=== PATIENT | female | born 1945 | race Caucasian/White ===

== ENCOUNTER 2016-04-22 08:20 | Emergency (ER) | payer OTHER, SELFPAY | END 2016-04-22 10:08 | disposition home or self-care (01) | LOC: ER 08:20 | DX: L72.3 Sebaceous cyst (principal); I10 Essential (primary) hypertension; Z90.710 Acquired absence of both cervix and uterus; Z79.899 Other long term (current) drug therapy | CPT/HCPCS: 96372; 99282-25 ==

== ENCOUNTER 2016-06-12 13:07 | Inpatient (IN) | payer OTHER ==
[~2016-06-12] VITALS: Ht 162.6 cm; Wt 79.0 kg
[2016-06-12 13:30] LABS: URINE BILIRUBIN 1+ (NEGATIVE); URINE BLOOD TRACE (NEGATIVE); URINE GLUCOSE (UA) NORMAL (NORMAL); URINE KETONE TRACE (NEGATIVE); URINE LEUKOCYTE ESTERASE 2+ (NEGATIVE); URINE NITRATE NEGATIVE (NEGATIVE); URINE PROTEIN 1+ (NEGATIVE)
[2016-06-12 13:42] LABS: URINE BACTERIA 1+ (NONE SEEN); URINE RBC 0-5 /[HPF] (0-2); URINE SQUAMOUS EPITHELIAL CELL >20 /[HPF] (NONE SEEN); URINE WBC >15 /[HPF] (0-5)
[2016-06-12 14:04] LABS: BASO % 0.1 % (0.1-1.2); EOS # 0.2 10_X3_uL (0.0-0.4); GRAN # 7.5 10_X3_uL (1.6-6.1); GRAN % 89.7 % (34.0-71.1); HEMATOCRIT 42.9 % (34-45); HEMOGLOBIN 14.3 g/dL (11.2-15.7); LYMPH # 0.3 10_X3_uL (1.2-3.7); MEAN CORPUSCULAR HEMOGLOBIN 31.3 pg (27.0-33.0); MEAN CORPUSCULAR HGB CONC 33.3 g/dL (32.0-36.0); MEAN CORPUSCULAR VOLUME 93.9 fL (79-95); MEAN PLATELET VOLUME 8.9 fl (7.5-11.5); MONO # 0.4 10_X3_uL (0.2-0.9); MONO % 4.2 % (4.7-12.5); PLATELET COUNT 154 x10_3/uL (182-369); RED BLOOD COUNT 4.57 x10_6/uL (3.9-5.2); RED CELL DISTRIBUTION WIDTH 14.3 % (11.7-14.4); WHITE BLOOD COUNT 8.3 x10_3/uL (4.0-10.0)
[2016-06-12 14:20] LABS: ALBUMIN 4.1 gm/dL (3.4-5.0); ALKALINE PHOSPHATASE 69 U/L (50-136); ALT/SGPT 47 U/L (3.5-33.9); AST/SGOT 37 U/L (7.04-26.96); BILIRUBIN,TOTAL 0.51 mg/dL (0.0-1.0); BLOOD UREA NITROGEN 20 mg/dL (7-18); CALCIUM 8.8 mg/dL (8.7-10.7); CARBON DIOXIDE 23 mmol/L (21-32); CREATININE 0.8 mg/dL (0.6-1.3); GLUCOSE,RANDOM 116 mg/dL (70-99); MAGNESIUM 1.9 mg/dL (1.8-2.4); POTASSIUM 3.7 mmol/L (3.5-5.1); SODIUM 139 mmol/L (136-145); TOTAL PROTEIN 6.7 gm/dL (6.4-8.2)
[2016-06-13 10:55] LABS: URINE BILIRUBIN NEGATIVE (NEGATIVE); URINE BLOOD NEGATIVE (NEGATIVE); URINE GLUCOSE (UA) NORMAL (NORMAL); URINE KETONE NEGATIVE (NEGATIVE); URINE LEUKOCYTE ESTERASE TRACE (NEGATIVE); URINE NITRATE NEGATIVE (NEGATIVE); URINE PROTEIN NEGATIVE (NEGATIVE); UROBILINOGEN NORMAL mg/dL (<1.0)
[2016-06-13 11:21] LABS: URINE BACTERIA FEW (NONE SEEN); URINE RBC 0-5 /[HPF] (0-2); URINE RENAL EPITHELIAL CELLS 0-10 /[HPF] (NONE SEEN); URINE SQUAMOUS EPITHELIAL CELL 0-10 /[HPF] (NONE SEEN); URINE WBC 0-5 /[HPF] (0-5)
[2016-06-14 06:07] LABS: URINE BILIRUBIN NEGATIVE (NEGATIVE); URINE BLOOD TRACE (NEGATIVE); URINE GLUCOSE (UA) NORMAL (NORMAL); URINE KETONE TRACE (NEGATIVE); URINE LEUKOCYTE ESTERASE NEGATIVE (NEGATIVE); URINE NITRATE NEGATIVE (NEGATIVE); URINE PROTEIN NEGATIVE (NEGATIVE); UROBILINOGEN NORMAL mg/dL (<1.0)
[2016-06-14 06:11] LABS: HEMATOCRIT 37.9 % (34-45); HEMOGLOBIN 12.3 g/dL (11.2-15.7); MEAN CORPUSCULAR HEMOGLOBIN 30.8 pg (27.0-33.0); MEAN CORPUSCULAR HGB CONC 32.5 g/dL (32.0-36.0); MEAN PLATELET VOLUME 9.3 fl (7.5-11.5); RED BLOOD COUNT 3.99 x10_6/uL (3.9-5.2); RED CELL DISTRIBUTION WIDTH 14.8 % (11.7-14.4); WHITE BLOOD COUNT 4.5 x10_3/uL (4.0-10.0)
[2016-06-14 06:16] LABS: BLOOD UREA NITROGEN 14 mg/dL (7-18); CALCIUM 7.8 mg/dL (8.7-10.7); CARBON DIOXIDE 21 mmol/L (21-32); CREATININE 0.8 mg/dL (0.6-1.3); GLUCOSE,RANDOM 109 mg/dL (70-99); POTASSIUM 3.7 mmol/L (3.5-5.1); SODIUM 139 mmol/L (136-145)
[2016-06-14 07:37] LABS: URINE RBC 0-5 /[HPF] (0-2); URINE SQUAMOUS EPITHELIAL CELL 0-10 /[HPF] (NONE SEEN); URINE WBC 0-5 /[HPF] (0-5)
[2016-06-14 07:38] LABS: URINE YEAST FEW (NONE SEEN)
== END 2016-06-14 11:30 | disposition home or self-care (01) | DRG 871 ==
LOC: ER 13:07 → MS 17:22 → UNDODEPER 06-13 18:11 → MS 06-14 11:30
PROVIDERS: Emergency Medicine; ADMIT Family Medicine
DX: A41.9 Sepsis, unspecified organism (principal); J18.9 Pneumonia, unspecified organism; N39.0 Urinary tract infection, site not specified; M54.5 Low back pain; M25.552 Pain in left hip; R11.2 Nausea with vomiting, unspecified; I10 Essential (primary) hypertension; Z96.611 Presence of right artificial shoulder joint; Z79.899 Other long term (current) drug therapy; Z90.710 Acquired absence of both cervix and uterus
CPT/HCPCS: 36415; 71020; 72100; 73521; 80048; 80053; 81001; 83605; 83735; 85025; 86738; 87040; 87400; 87449; 96365; 96375; 99070; 99284-25

== ENCOUNTER 2016-06-12 13:07 | Emergency (ER) | payer OTHER | END 2016-06-12 17:22 | disposition other institution (70) | LOC: ER 13:07 | DX: A41.9 Sepsis, unspecified organism (principal); J18.9 Pneumonia, unspecified organism; M54.5 Low back pain; Z87.440 Personal history of urinary (tract) infections; I10 Essential (primary) hypertension; Z79.899 Other long term (current) drug therapy | CPT/HCPCS: 99284-25 ==

== ENCOUNTER 2016-06-20 13:31 | Emergency (ER) | payer OTHER, SELFPAY ==
[2016-06-20 14:56] LABS: PH,URINE 6.5 (5.0 - 9.0); URINE BILIRUBIN NEGATIVE (NEGATIVE); URINE BLOOD NEGATIVE (NEGATIVE); URINE GLUCOSE (UA) NORMAL (NORMAL); URINE KETONE NEGATIVE (NEGATIVE); URINE LEUKOCYTE ESTERASE NEGATIVE (NEGATIVE); URINE NITRATE NEGATIVE (NEGATIVE); URINE PROTEIN NEGATIVE (NEGATIVE); UROBILINOGEN NORMAL mg/dL (<1.0)
[2016-06-20 15:51] LABS: BASO % 0.4 % (0.1-1.2); EOS # 0.4 10_X3_uL (0.0-0.4); EOS % 6.1 % (0.7-5.8); GRAN # 4.2 10_X3_uL (1.6-6.1); GRAN % 57.8 % (34.0-71.1); HEMATOCRIT 38.3 % (34-45); HEMOGLOBIN 12.8 g/dL (11.2-15.7); LYMPH % 27.8 % (19.3-51.7); MEAN CORPUSCULAR HEMOGLOBIN 31.4 pg (27.0-33.0); MEAN CORPUSCULAR HGB CONC 33.4 g/dL (32.0-36.0); MEAN CORPUSCULAR VOLUME 93.9 fL (79-95); MONO # 0.6 10_X3_uL (0.2-0.9); MONO % 7.9 % (4.7-12.5); PLATELET COUNT 236 x10_3/uL (182-369); RED BLOOD COUNT 4.08 x10_6/uL (3.9-5.2); RED CELL DISTRIBUTION WIDTH 14.4 % (11.7-14.4); WHITE BLOOD COUNT 7.2 x10_3/uL (4.0-10.0)
[2016-06-20 16:08] LABS: ALBUMIN 3.8 gm/dL (3.4-5.0); ALKALINE PHOSPHATASE 64 U/L (50-136); ALT/SGPT 63 U/L (3.5-33.9); AST/SGOT 31 U/L (7.04-26.96); BILIRUBIN,TOTAL 0.37 mg/dL (0.0-1.0); BLOOD UREA NITROGEN 11 mg/dL (7-18); CALCIUM 9.2 mg/dL (8.7-10.7); CARBON DIOXIDE 25 mmol/L (21-32); CREATINE KINASE 35 U/L (21-215); CREATININE 0.7 mg/dL (0.6-1.3); GLUCOSE,RANDOM 88 mg/dL (70-99); POTASSIUM 3.6 mmol/L (3.5-5.1); SODIUM 142 mmol/L (136-145); TOTAL PROTEIN 6.6 gm/dL (6.4-8.2)
== END 2016-06-20 18:40 | disposition home or self-care (01) ==
LOC: ER 13:31
PROVIDERS: Internal Medicine
DX: R51 Headache (principal); Z79.899 Other long term (current) drug therapy; Z79.1 Long term (current) use of non-steroidal anti-inflammatories (NSAID)
CPT/HCPCS: 36415; 70450; 71020; 80053; 81003; 82550; 82553; 85025; 87040; 93005; 99284-25